=== PATIENT | female | born 1995 ===

== ENCOUNTER 2022-10-13 12:11 | Emergency (ER) | payer MEDICAID ==
[~2022-10-13] VITALS: Ht 162.6 cm; Wt 80.8 kg
[2022-10-13 12:33] VITALS: BP 117/88; PULSE 72; RESP 16; TEMP 97.7; O2SAT 97
== END 2022-10-13 16:55 | disposition left against medical advice (07) ==
LOC: ER 12:11
DX: Z11.3 Encounter for screening for infections with a predominantly sexual mode of transmission (principal); Z53.21 Procedure and treatment not carried out due to patient leaving prior to being seen by health care provider
CPT/HCPCS: 99281